=== PATIENT | male | born 1990 | race Caucasian/White ===

== ENCOUNTER 2021-08-28 08:38 | Outpatient (CLI) | payer BC, SELFPAY ==
--- NOTE | 2021-08-28 | EST_ITS ---
Patient Info Name: GLENN FOSTER Age: 31 years : 1990 Gender: Male Ht: 70 in Wt: 190 lbs BSA: 2.08 m2 HR: 71 bpm BP: 106 / 71 mmHg Heart Rhythm: Sinus Rhythm Exam Date: 08/28/2021 8:57 AM Exam Location: [facility] Stress Patient Status: Outpatient Admit Date: 08/28/2021 Staff Ordering Physician: Osorio Brambila MD Attending Provider: Osorio Brambila MD Exercise Technologist: Lisa Escalona CT Exercise Physician: Martir Lima DO Exam Type: CA stress test treadmill Study Info Indications R07.9 - Chest pain, unspecified An exercise stress test was performed. Summary 1. 1. Negative Carrillo exercise stress test for ischemic ST changes by ECG criteria. 2. 2. Good functional capacity, achieving 14.9 METs of workload. 3. 3. Appropriate HR response to exercise. 4. 4. Appropriate HR recovery at 1 minute post exercise. 5. 5. No imaging with stress testing. 6. 6. Patient informed of the above results. Protocol: Carrillo Stress ECG Details Stage: REST Duration (min): 2 min : 12 sec Speed (mph): 0.0 Grade (%): 0 HR (bpm): 63 SBP (mmHg): 106 DBP (mmHg): 71 METS: --- Stage: REST Duration (min): 6 min : 24 sec Speed (mph): 0.0 Grade (%): 0 HR (bpm): 67 SBP (mmHg): 106 DBP (mmHg): 71 METS: --- Stage: STAGE 1 Duration (min): 1 min : 0 sec Speed (mph): 1.7 Grade (%): 10 HR (bpm): 104 SBP (mmHg): 106 DBP (mmHg): 71 METS: --- Stage: STAGE 1 Duration (min): 2 min : 0 sec Speed (mph): 1.7 Grade (%): 10 HR (bpm): 100 SBP (mmHg): 106 DBP (mmHg): 71 METS: --- Stage: STAGE 1 Duration (min): 3 min : 0 sec Speed (mph): 1.7 Grade (%): 10 HR (bpm): 104 SBP (mmHg): 142 DBP (mmHg): 56 METS: --- Stage: STAGE 2 Duration (min): 1 min : 0 sec Speed (mph): 2.5 Grade (%): 12 HR (bpm): 107 SBP (mmHg): 142 DBP (mmHg): 56 METS: --- Stage: STAGE 2 Duration (min): 2 min : 0 sec Speed (mph): 2.5 Grade (%): 12 HR (bpm): 110 SBP (mmHg): 127 DBP (mmHg): 60 METS: --- Stage: STAGE 2 Duration (min): 3 min : 0 sec Speed (mph): 2.5 Grade (%): 12 HR (bpm): 116 SBP (mmHg): 127 DBP (mmHg): 60 METS: --- Stage: STAGE 3 Duration (min): 1 min : 0 sec Speed (mph): 3.4 Grade (%): 14 HR (bpm): 122 SBP (mmHg): 153 DBP (mmHg): 71 METS: --- Stage: STAGE 3 Duration (min): 2 min : 0 sec Speed (mph): 3.4 Grade (%): 14 HR (bpm): 129 SBP (mmHg): 153 DBP (mmHg): 71 METS: --- Stage: STAGE 3 Duration (min): 3 min : 0 sec Speed (mph): 3.4 Grade (%): 14 HR (bpm): 142 SBP (mmHg): 145 DBP (mmHg): 60 METS: --- Stage: STAGE 4 Duration (min): 1 min : 0 sec Speed (mph): 4.2 Grade (%): 16 HR (bpm): 142 SBP (mmHg): 145 DBP (mmHg): 60 METS: --- Stage:
== END 2021-08-28 08:39 | disposition home or self-care (01) ==
LOC: ANHCARD 08:41
PROVIDERS: PCP Emergency Medicine; Visit Provider Emergency Medicine
DX: R07.89 Other chest pain (principal)
CPT/HCPCS: 93017

== ENCOUNTER 2022-06-30 01:00 | Emergency (ER) | payer BC, SELFPAY ==
[2022-06-30 01:07] VITALS: BP 110/68; PULSE 66; RESP 20; TEMP 36.3; O2SAT 100
[2022-06-30 01:09] VITALS: BP 120/83; PULSE 72; RESP 20; O2SAT 99
--- NOTE | 2022-06-30 01:25 | ED.GENADULT ---
HPI - General Adult General Chief complaint: Shortness of Breath/Dyspnea Stated complaint: Shortness of Breath with sleeping Time Seen by Provider: 06/30/22 01:07 History of Present Illness HPI narrative: 29-year-old male presents emergency room. He been dealing with COVID for about 10 to 14 days. Everybody his family has it. He states that over the last couple days now he is developed a lot of congestion in his head and a lot of pressure sensation. Has a lot of postnasal drip. Keeping him awake at night. Is also irritating his throat. He denies any cough from my lungs . He is not having any more chills and fevers. He is also complaining of some congestion in his ears. Related Data Allergies Allergy/AdvReac Type Severity Reaction Status Date / Time No Known Allergies Allergy Verified 06/30/22 01:07 Review of Systems Review of Systems: CONSTITUTIONAL: Denies fever, chills, or sweats. EYES: Denies visual changes, redness, or discharge. ENT: Nasal congestion with a lot of postnasal drip and some fullness in his ears. A mild sore throat CARDIOVASCULAR: Denies chest pain, palpitations, or edema. RESPIRATORY: Denies cough or dyspnea. GASTROINTESTINAL: Denies abdominal pain, nausea, vomiting, or diarrhea. GENITOURINARY: Denies dysuria or hematuria. SKIN: Denies rash or itching. MUSCULOSKELETAL: Denies back pain, joint pain, or myalgia. NEUROLOGIC: Denies headache, numbness, or weakness. PSYCHIATRIC: Denies anxiety or depression. [facility] Past Medical History Medical History (Updated 06/30/22 @ 01:26 by Charles Montoya DO) COVID Social History Social History (Updated 06/30/22 @ 01:26 by Charles Montoya DO) Living arrangements: with family Exam Narrative: APPEARANCE: Well appearing, no pain or distress, well-nourished. Head Normocephalic and atraumatic. EYES: PERRLA/EOMI, conjunctivae clear. NOSE: Lots of nasal rhinorrhea EARS: Right TM is dull with no right flexor reflex. The left TM is noted be clear. THROAT: Pharynx clear, no exudate. Some postnasal drip noted NECK: Supple. No adenopathy, no masses. RESPIRATORY: Airway patent, respirations nonlabored. Clear to auscultation bilaterally, no rales, rhonchi, wheezing. CARDIOVASCULAR: Regular rate and rhythm without murmurs, rubs, or gallops. ABDOMINAL: Soft, nontender, nondistended, no hepatosplenomegaly Musculoskeletal: Moves all extremities. Strength/ROM intact, No edema, No calf tenderness. NEURO: Alert. Cranial nerves II through XII intact. Normal gait. Good coordination. Nonfocal examination. SKIN:: Warm, dry. Normal Color PSYCHIATRIC: Normal affect/mood, normal interaction Course Vital Signs Vital signs: Vital Signs Temperature 97.3 F L 06/30/22 01:07 Pulse Rate 66 06/30/22 01:07 Respiratory Rate 20 06/30/22 01:07 Blood Pressure 110/68 06/30/22 01:07 Pulse Oximetry 100 06/30/22 01:07 Oxygen Delivery Room Air 06/30/22 01:07 Temperature 97.3 F L 06/30/22 01:07 Pulse Rate 72 06/30/22 01:09 Respiratory Rate 20 06/30/22 01:09 Blood Pressure 120/83 06/30/22 01:09 Pulse Oximetry 99 06/30/22 01:09 Oxygen Delivery Room Air 06/30/22 01:07 Medical Decision Making MDM Narrative Medical decision making narrative: Patient has a lot of upper respiratory congestion. His right TM dull consistent with serous otitis media. Put the patient on Claritin-D, Z-Kei, and also given prednisone 20 mg twice daily for the next 5 days to help decrease the inflammatory symptoms he is having. Vital Signs Vital Signs: Vital Signs Temperature 97.3 F L 06/30/22 01:07 Pulse Rate 66 06/30/22 01:07 Respiratory Rate 20 06/30/22 01:07 Blood Pressure 110/68 06/30/22 01:07 Pulse Oximetry 100 06/30/22 01:07 Oxygen Delivery Room Air 06/30/22 01:07 Temperature 97.3 F L 06/30/22 01:07 Pulse Rate 72 06/30/22 01:09 Respiratory Rate 20 06/30/22 01:09 Blood Pressure 120/83 06/30/22 01:09 Pulse Oximetry 99
== END 2022-06-30 01:45 | disposition home or self-care (01) ==
PROVIDERS: Emergency Provider Emergency Medicine; PCP Emergency Medicine
DX: U07.1 COVID-19 (principal); H65.01 Acute serous otitis media, right ear
CPT/HCPCS: 99283